=== PATIENT | male | born 1990 | race Caucasian/White ===

== ENCOUNTER 2021-04-10 21:05 | Emergency (ER) | payer SELFPAY ==
--- NOTE | 2021-04-10 22:21 | EDM.PDOC ---
ED HPI GENERAL MEDICAL PROBLEM - General Stated Complaint: TESTICLES HURTING Time Seen by Provider: 04/10/21 22:00 Source of Information: Reports: Patient, RN, RN Notes Reviewed - History of Present Illness INITIAL COMMENTS - FREE TEXT/NARRATIVE: Morales is a 30 y/o male who presents to the ED via personal vehicle with complaints of testicular pain. The patient reports his pain began abruptly approximately three hours ago and radiates into his bilateral lower abdomen. He characterizes the pain as sharp and constant, rating it a 6/10. Additionally, he notes a fever two nights with a TMax of 103.4 which did respond appropriately to acetaminophen. He denies nausea, vomiting, abdominal pain, dysuria, hematuria, diarrhea, or constipation. He denies injury to the the testicles or scrotum. He notes the pain is more apparent on the right side. - Related Data Allergies Allergy/AdvReac Type Severity Reaction Status Date / Time Unable to Assess Allergy Verified 04/10/21 21:21 Home Meds: Home Meds . [No Known Home Meds] 04/10/21 [History] Past Medical History - Past Health History Medical/Surgical History: Denies Medical/Surgical History Social & Family History - Tobacco Use Tobacco Use Status *Q: Current Every Day Tobacco User Years of Tobacco use: 10 Packs/Tins Daily: 1 - Caffeine Use Caffeine Use: Reports: Coffee, Energy Drinks, Soda - Recreational Drug Use Recreational Drug Use: No ED ROS GENERAL - Review of Systems Review Of Systems: Comprehensive ROS is negative, except as noted in HPI. ED EXAM, GENERAL - Physical Exam Exam: See Below Exam Limited By: No Limitations General Appearance: Alert, No Apparent Distress Eye Exam: Bilateral Eye: EOMI, Normal Inspection, PERRL (3mm) Ears: Normal External Exam, Hearing Grossly Normal Nose: Normal Inspection Throat/Mouth: Normal Inspection, Normal Oropharynx, Normal Voice, No Airway Compromise Head: Atraumatic, Normocephalic Neck: Normal Inspection, Full Range of Motion Respiratory/Chest: No Respiratory Distress, Lungs Clear, Normal Breath Sounds, No Accessory Muscle Use, Chest Non-Tender Cardiovascular: Normal Peripheral Pulses, Regular Rate, Rhythm, No Gallop, No Murmur, No Rub, Tachycardia Peripheral Pulses: 2+: Radial (L), Radial (R) GI/Abdominal: Normal Bowel Sounds, Soft, No Distention, No Abnormal Bruit, No Mass, Pelvis Stable, Tender (To palpation of right suprapubic region) (Male) Exam: No Hernia, Circumcised, Scrotal Swelling (To right), Scrotum Tenderness (R), Testicular Tenderness (R) (Point tenderness to epididymis ). No: Penile Lesions Rectal (Males) Exam: Deferred Back Exam: Normal Inspection, Full Range of Motion. No: CVA Tenderness (L), CVA Tenderness (R) Extremities: Normal Inspection, Normal Range of Motion, Normal Capillary Refill Neurological: Alert, Oriented, CN II-XII Intact, Normal Cognition, Normal Gait, No Motor/Sensory Deficits Psychiatric: Normal Affect, Normal Mood Skin Exam: Warm, Dry, Intact, Normal Color, No Rash. No: Cyanosis, Jaundice, Mottled, Pallor Course - Vital Signs Last Recorded V/S: Last Vital Signs Temp 98.6 F 04/10/21 21:12 Pulse 109 H 04/10/21 21:12 Resp 16 04/10/21 21:12 BP 158/123 H 04/10/21 21:12 Pulse Ox 100 04/10/21 21:12 - Orders/Labs/Meds Orders: Active Orders 24 hr Category Date Time Status STD PANEL 3 [REF] Stat Lab 04/10/21 22:09 Ordered Labs: Laboratory Tests 04/10/21 Range/Units 21:40 Urine Color Yellow (YELLOW) Urine Appearance Slightly cloudy (CLEAR) Urine pH 6.5 (5.0-9.0) Ur Specific [place] >= 1.030 (1.005-1.030) Urine Protein Negative (NEGATIVE) Urine Glucose (UA) Negative (NEGATIVE) Urine Ketones Negative (NEGATIVE) Urine Occult Blood Negative (NEGATIVE) Urine Nitrite Negative (NEGATIVE) Urine Bilirubin Negative (NEGATIVE) Urine Urobilinogen 0.2 (0.2-1.0) mg/dL Ur Leukocyte Esterase Negative (NEGATIVE) Meds: Medications Discontinued Medications Generic Name Dose Route Start Last Admin Trade Name Freq PRN Reason Stop Dose Admin Ceftriaxone Sodium 500 mg/ 0 mg 04/10/21 22:25 Lidocaine HCl 1 ml IM 04/10/21 22:26 ONETIME ONE Doxycycline Monohydrate 100 mg 04/10/21 22:25 Doxycycline Monohydrate 100 Mg Cap PO 04/10/21 22:26 ONETIME ONE - Re-Assessments/Exams Free Text/Narrative Re-Assessment/Exam: 04/10/21 Findings of examination reviewed with patient. STD panel sent. Will treat acute epididymitis with Rocephin 500mg IM and doxycycline 100mg PO BID x10 days. Supportive cares for acute pain discussed. Patient instructed he will receive follow up from this facilities infectious disease RN. Red flag signs and sym ptoms which would warrant immediate reevaluation reviewed. Patient verbalized understanding and agreement with the plan of care. Departure - Departure Time of Disposition: 22:26 Disposition: Home, Self-Care 01 Condition: Good Clinical Impression: Acute epididymitis - Discharge Information *PRESCRIPTION DRUG MONITORING PROGRAM REVIEWED*: Not Applicable *COPY OF PRESCRIPTION DRUG MONITORING REPORT IN PATIENT FLORA: Not Applicable Instructions: Epididymitis Forms: ED Department Discharge Additional Instructions: Rx: doxycycline 100mg (#20) 1.) Take all of your antibiotic until gone, unless otherwise notified by infectious disease RN. 2.) Infectious disease from this facility will follow up with your regarding your results from today. 3.) You may take ibuprofen (Advil/Motrin) 400mg every six hours, as pain and swelling persist. You may also take acetaminophen (Tylenol) 650mg every six hours, as pain persists. You may stagger these medications so you are taking a dose of either every three hours. Sepsis Event Note (ED) - Evaluation Sepsis Screening Result: No Definite Risk - Focused Exam Vital Signs: Vital Signs Temp Pulse Resp BP Pulse Ox 04/10/21 21:12 98.6 F 109 H 16 158/123 H 100 - My Orders Last 24 Hours: My Active Orders 04/10/21 22:09 STD PANEL 3 [REF] Stat - Assessment/Plan Last 24 Hours: My Active Orders 04/10/21 22:09 STD PANEL 3 [REF] Stat
[2021-04-10] MEDS ORDERED: cefTRIAXone 500 MG, Lidocaine 1% 1 ML IM ONE ×2 (22:25)
[2021-04-10] MEDS ORDERED: Doxycycline Monohydrate 100 MG Cap PO ONE (22:25)
== END 2021-04-10 22:40 | disposition home or self-care (01) ==
LOC: DL.ED 21:05
DX: N45.1 Epididymitis (principal); Z72.0 Tobacco use
CPT/HCPCS: 81003; 87491; 87563; 87591; 96372; 99284; A9270; J0696